=== PATIENT | female | born 1980 | race Caucasian/White ===

== ENCOUNTER 2018-06-20 20:46 | Emergency (ER) | payer OTHER ==
[~2018-06-20] VITALS: Ht 162.6 cm; Wt 75.3 kg
[2018-06-20] MEDS ORDERED: TYLENOL-CODEINE1 TA1 PO (21:22)
[2018-06-20] MEDS ORDERED: VISTARIL25 MG PO (21:23)
== END 2018-06-21 03:04 | disposition home or self-care (01) ==
LOC: ER 20:46
DX: O26.891 Other specified pregnancy related conditions, first trimester (principal); R10.2 Pelvic and perineal pain; G43.809 Other migraine, not intractable, without status migrainosus; Z34.01 Encounter for supervision of normal first pregnancy, first trimester

== ENCOUNTER 2018-07-22 09:11 | Emergency (ER) | payer OTHER ==
[~2018-07-22] VITALS: Ht 162.6 cm; Wt 75.3 kg
[~2018-07-22 09:11] MED LIST: TYLENOL-CODEINE1 TA1 PO; VISTARIL25 MG PO
[2018-07-22] MEDS ORDERED: PRENATAL + DHA1 EAC1 PO (09:32)
== END 2018-07-22 15:44 | disposition home or self-care (01) ==
LOC: ER 09:11
DX: O21.0 Mild hyperemesis gravidarum (principal); Z34.81 Encounter for supervision of other normal pregnancy, first trimester

== ENCOUNTER 2018-09-30 10:04 | Outpatient (CLI) | payer OTHER ==
[~2018-09-30 10:04] MED LIST changes: +PRENATAL + DHA1 EAC1 PO
== END 2018-10-01 11:05 | disposition home or self-care (01) ==
LOC: OBS/DEL 10:04
DX: O26.892 Other specified pregnancy related conditions, second trimester (principal); K52.89 Other specified noninfective gastroenteritis and colitis; K21.9 Gastro-esophageal reflux disease without esophagitis; O21.1 Hyperemesis gravidarum with metabolic disturbance; Z34.02 Encounter for supervision of normal first pregnancy, second trimester

== ENCOUNTER 2019-02-09 15:55 | Inpatient (IN) | payer OTHER ==
[~2019-02-09] VITALS: Ht 162.6 cm; Wt 3.6 kg
[2019-02-10] MEDS ORDERED: IRON325 MG PO (04:49)
[2019-02-10] MEDS ORDERED: PRENATAL TABLE1 EAC1 PO (04:49)
[2019-02-10] MEDS ORDERED: ZYRTEC10 M3 PO (04:50)
== END 2019-02-13 13:52 | disposition home or self-care (01) | DRG 788 ==
LOC: OB/GYN 15:55 → LDR 02-10 04:13 → OB/GYN 02-10 04:13 → LDR 02-10 04:35 → OB/GYN 02-10 11:22
PROVIDERS: ADMIT Obstetrics & Gynecology
PROC: 4A1HXCZ Monitoring of Products of Conception, Cardiac Rate, External Approach (ICD-10-PCS; 2019-02-10)
PROC: 10D00Z1 Extraction of Products of Conception, Low, Open Approach (ICD-10-PCS; principal; 2019-02-10 10:00)
DX: O82 Encounter for cesarean delivery without indication (principal); O24.420 Gestational diabetes mellitus in childbirth, diet controlled; Z3A.40 40 weeks gestation of pregnancy; Z37.0 Single live birth

== ENCOUNTER 2019-04-21 04:49 | Emergency (ER) | payer OTHER ==
[~2019-04-21] VITALS: Ht 162.6 cm; Wt 71.7 kg
[~2019-04-21 04:49] MED LIST changes: +IRON325 MG PO; +PRENATAL TABLE1 EAC1 PO; +ZYRTEC10 M3 PO
[2019-04-21] MEDS ORDERED: ZYNCOF 20-400120 ML PO (08:06)
[2019-04-21] MEDS ORDERED: XOPENEX0.63 MG/3 IH (08:06)
== END 2019-04-21 08:14 ==
LOC: ER 04:49
DX: J06.9 Acute upper respiratory infection, unspecified (principal); R05 Cough; R09.81 Nasal congestion

== ENCOUNTER 2019-10-14 12:47 | Outpatient (CLI) | payer OTHER ==
[~2019-10-14] VITALS: Ht 162.6 cm; Wt 69.9 kg
[~2019-10-14 12:47] MED LIST changes: +XOPENEX0.63 MG/3 IH; +ZYNCOF 20-400120 ML PO
== END 2019-10-14 16:16 | disposition home or self-care (01) ==
LOC: OFIC 805 12:47
DX: L30.8 Other specified dermatitis (principal); K21.0 Gastro-esophageal reflux disease with esophagitis; R07.0 Pain in throat; M54.2 Cervicalgia; H61.23 Impacted cerumen, bilateral

== ENCOUNTER 2023-12-01 16:35 | Emergency (ER) | payer OTHER ==
[~2023-12-01] VITALS: Ht 162.6 cm; Wt 72.6 kg
[2023-12-01] MEDS ORDERED: ZYRTEC10 M3 PO (16:41)
[2023-12-01] MEDS ORDERED: AUMENTIN (16:41)
[2023-12-01] MEDS ORDERED: PEPCID AC10 MG (16:41)
[2023-12-01] MEDS ORDERED: AMITRIPTYLINE H10 MG PO (16:41)
[2023-12-01] MEDS ORDERED: FLONASE16 GM NS (16:41)
[2023-12-01] MEDS ORDERED: GUAIFENESIN 200 MG/10 ML BLIST.PACK PO STA (19:07)
[2023-12-01 19:48] LABS: HEMOGLOBIN 13.3 g/dL (12.0-15.00); MEAN CELL VOLUME 86.5 fL (80.00-100.00); MEAN CORPUSCULAR HEMOGLOBIN 28.8 pg (27.00-32.0); MEAN CORPUSCULAR HGB CONC 33.2 g/dl (32.0-36.0); PLATELET COUNT 256 K/uL (150-450); RED BLOOD COUNT 4.63 M/uL (4.00-6.00); RED CELL DISTRIBUTION WIDTH 14.4 % (11.5-14.5)
[2023-12-01 20:22] LABS: PH,URINE 5.5 (5.0-8.0); URINE APPEARANCE Cloudy; URINE BILIRRUBIN Negative (NEGATIVE); URINE BLOOD Moderate; URINE COLOR Yellow; URINE GLUCOSE Negative (NEGATIVE); URINE LEUKOCYTE Small; URINE NITRATE Negative; URINE PROTEIN Trace (NEGATIVE)
[2023-12-01 20:26] LABS: URINE BACTERIA 2522.4 uL (0.0-1933); URINE EPITHELIAL CELLS 97.9 uL (0.0-38.8); URINE RBC 195.8 uL (0.0-20.8); URINE WBC 81.7 uL (0.0-23.2)
[2023-12-01] MEDS ORDERED: CEFTRIAXONE SODIUM 1,000 MG VIAL IV STA (21:42)
== END 2023-12-01 21:48 | disposition home or self-care (01) ==
LOC: ER 16:35
PROVIDERS: General Practice
DX: J06.9 Acute upper respiratory infection, unspecified (principal); Z3A.01 Less than 8 weeks gestation of pregnancy; Z88.8 Allergy status to other drugs, medicaments and biological substances; O23.31 Infections of other parts of urinary tract in pregnancy, first trimester; N39.0 Urinary tract infection, site not specified; Z20.822 Contact with and (suspected) exposure to COVID-19

== ENCOUNTER 2024-02-18 11:56 | Outpatient (CLI) | payer OTHER ==
[~2024-02-18 11:56] MED LIST changes: +AMITRIPTYLINE H10 MG PO; +AUMENTIN; +FLONASE16 GM NS; +PEPCID AC10 MG
== END 2024-02-18 11:57 | disposition home or self-care (01) ==
LOC: PRENATAL 11:56
PROVIDERS: ATTEND Obstetrics & Gynecology Maternal & Fetal Medicine
DX: O35.9XX0 Maternal care for (suspected) fetal abnormality and damage, unspecified, not applicable or unspecified (principal); O35.3XX0 Maternal care for (suspected) damage to fetus from viral disease in mother, not applicable or unspecified; O44.02 Complete placenta previa NOS or without hemorrhage, second trimester; O09.522 Supervision of elderly multigravida, second trimester; Z3A.19 19 weeks gestation of pregnancy; O34.219 Maternal care for unspecified type scar from previous cesarean delivery; O34.40 Maternal care for other abnormalities of cervix, unspecified trimester

== ENCOUNTER 2024-04-22 09:53 | Outpatient (CLI) | payer OTHER | END 2024-04-22 09:54 | disposition home or self-care (01) | LOC: PRENATAL 09:53 | PROVIDERS: ATTEND Obstetrics & Gynecology Maternal & Fetal Medicine | DX: O26.843 Uterine size-date discrepancy, third trimester (principal); O09.523 Supervision of elderly multigravida, third trimester; O34.219 Maternal care for unspecified type scar from previous cesarean delivery; O99.343 Other mental disorders complicating pregnancy, third trimester; F99 Mental disorder, not otherwise specified; O99.891 Other specified diseases and conditions complicating pregnancy; Z3A.28 28 weeks gestation of pregnancy ==

== ENCOUNTER → 2024-06-02 11:07 | Outpatient (CLI) | payer OTHER | END | disposition home or self-care (01) | LOC: PRENATAL 11:07 | PROVIDERS: ATTEND Obstetrics & Gynecology Maternal & Fetal Medicine | DX: O24.419 Gestational diabetes mellitus in pregnancy, unspecified control (principal); O09.523 Supervision of elderly multigravida, third trimester; O26.849 Uterine size-date discrepancy, unspecified trimester; O36.8199 Decreased fetal movements, unspecified trimester, other fetus; O09.529 Supervision of elderly multigravida, unspecified trimester; O34.219 Maternal care for unspecified type scar from previous cesarean delivery; Z3A.34 34 weeks gestation of pregnancy ==